=== PATIENT | male | born 1975 | race Caucasian/White ===

== ENCOUNTER 2021-07-02 09:08 | Outpatient (CLI) | payer BC ==
--- NOTE | 2021-07-02 12:16 | XRAY Report ---
PROCEDURE: Chest 2 View X-Ray INDICATIONS: COUGH TECHNIQUE: 2 view(s) of the chest. COMPARISON: None. FINDINGS: Surgical changes and devices: None. Lungs and pleura: No pleural effusions or pneumothorax. Lungs are clear. Mediastinum: Mediastinal contours are normal. Heart size is normal. Bones and chest wall: No suspicious bony abnormalities. Soft tissues appear unremarkable. IMPRESSION: No evidence acute pulmonary process. Reviewed by: Tommy Walker MD on 07/02/2021 12:15 PM PDT Approved by: Tommy Walker MD on 07/02/2021 12:15 PM PDT Station ID: [id number]
== END 2021-07-02 23:59 | disposition home or self-care (01) ==
LOC: DI.N 09:08
PROVIDERS: ATTEND Physician Assistant Medical
DX: R05 Cough (principal); Z20.822 Contact with and (suspected) exposure to COVID-19